=== PATIENT | male | born 1965 | race Caucasian/White ===

== ENCOUNTER → 2017-10-09 | Outpatient (CLI) | payer BC ==
--- NOTE | 2017-10-09 15:51 | PN ---
PROGRESS NOTE Ramón is coming to see me in followup. He is a 52-year-old male patient who is very well known to me. He was last seen in our office in August of 2014. The patient has obstructive sleep apnea and he was undergoing routine DOT certification back then. He has an auto CPAP unit which is set at a minimum pressure of 9 and a maximum pressure of 12. The patient was very compliant and he has demonstrated excellent use. His DOT certification was renewed back then. Since then, the patient is coming in to be re- evaluated, knowing that he has an upcoming DOT evaluation by the end of the year. Nevertheless, his current [employer] machine is unable to record any data to confirm compliance. The chip that was in the machine was taken out and sent to [facility], and again there was no data collected. His treatment, however, is successfully. He using a Dream[employer]ear nose mask. He is wearing it every night and he is waking up refreshed and alert during the day. He goes to bed around 9 to 10 p.m. and wakes up somewhere between 5 and 6 a.m. in the morning. He denies having any significant weight gain; however, based on my records the patient has gained around 25 to 30 pounds since his diagnosis of obstructive sleep apnea. His current weight is up to 351. His current [place] score is 8. He does not fall asleep while driving or operating heavy machinery. He does not snore or stop breathing while on the CPAP treatment. REVIEW OF SYSTEMS: No nocturia. No dysuria. No grinding of the teeth. No sleepwalking or sleeptalking. No anxiety or panic attacks. No palpitation or chest pain. No heartburn. No dyspnea. No restlessness in his lower extremities or symptoms of neuropathy. No focal neurological deficits. No headaches. No alteration in memory or concentration or irritability. No depression. No anxiety. No claustrophobia. No sexual dysfunction. PHYSICAL EXAMINATION: BP is 136/105, pulse 82, respiration 16, temperature 97.5, saturation 97% on room air. Weight is 351. Height is . Neck size is 18 inches. GENERAL APPEARANCE: Calm, comfortable. No acute distress. Head is atraumatic, normocephalic. Neck is short, supple. Crowding of the posterior pharynx is present. There is no goiter or neck masses. LUNGS: Clear to auscultation. HEART: Heart sounds are regular rate and rhythm. Normal S1, S2. No S3, S4. No murmurs. ABDOMEN: Soft, nontender. No organomegaly. EXTREMITIES: No edema. No cyanosis or clubbing. NEUROLOGIC: The patient is alert and oriented x3. There is no focal neurological deficit. PSYCHIATRIC: Negative for anxiety or depression. SKIN: Negative for wounds or ulceration. IMPRESSION: 1. Symptomatic obstructive sleep apnea. The patient has been compliant with his auto CPAP unit which is a [employer] unit, with a minimum pressure of 9 and maximum pressure of 10. The patient continues to receive successful treatment; nevertheless, the machine is malfunctioning in terms of being unable to record any information in regard to his compliancy. 2. Obesity. 3. Hypersomnia, improved. 4. Hypertension. PLAN: The patient is very interested in purchasing his own machine. I advised him an [employer] ResMed CPAP unit, which will be set at the same setting. Encourage weight loss. Continue using the [employer]ear face mask. Once he purchases his own machine, he can bring it up to me to download compliancy data. He continues to receive treatment and his treatment is successful for now. MMODL / IJN: [id number] /
== END | disposition home or self-care (01) ==
LOC: SLEEP 13:59
PROVIDERS: ATTEND Internal Medicine Critical Care Medicine
DX: G47.33 Obstructive sleep apnea (adult) (pediatric) (principal); E66.9 Obesity, unspecified; I10 Essential (primary) hypertension; Z99.89 Dependence on other enabling machines and devices
CPT/HCPCS: 99211

== ENCOUNTER → 2022-06-06 | Outpatient (CLI) | payer BC ==
--- NOTE | 2022-06-06 07:04 | CT ---
EXAMINATION TYPE: CT sinus wo con DATE OF EXAM: 06/06/2022 COMPARISON: NONE HISTORY: Chronic sinusitis. CT DLP: 648.7 mGycm. Automated Exposure Control for Dose Reduction was Utilized. TECHNIQUE: CT scan of the sinuses is performed without contrast, axial images are obtained, coronal r eformatted images are also reviewed. FINDINGS: Nearly completely opacified right maxillary sinus. Moderate to severe mucosal thickening in the left maxillary sinus. Mild mucosal thickening anterior aspect of the sphenoid sinuses bilateral ly. Mild to moderate inferior mucosal thickening with patchy fluid in the right frontal sinus. Minima l mucosal thickening inferior left frontal sinus. Mucosal thickening and opacification of ethmoid sin uses bilaterally greater on the right and greatest anteriorly. The surgically treated ostiomeatal com plex is patent bilaterally but more narrowed on the right due to antral mucosal thickening and opacif ication Visualized portion of mastoid air cells show no abnormal opacification. The globes are intact bilate rally. IMPRESSION: Acute on chronic paranasal pansinusitis despite prior sinus surgery as detailed above.
== END | disposition home or self-care (01) ==
LOC: RADCTMAIN 06:33
PROVIDERS: ATTEND Otolaryngology
DX: J32.4 Chronic pansinusitis (principal)
CPT/HCPCS: 70486

== ENCOUNTER 2022-07-20 07:33 | Day surgery (SDC) | payer BC ==
[~2022-07-20 07:33] MED LIST: DEXAMETHASONE SOD PHOSPHATE 4 MG/ML 1 ML VIAL IV ONE; DEXAMETHASONE SOD PHOSPHATE 4 MG/ML 1 ML VIAL IV PRN; FAMOTIDINE 20 MG/2 ML VIAL IV PRN; HYDROmorphone 0.5 MG/0.5 ML SYRINGE IVP PRN; ONDANSETRON 4 MG/2 ML VIAL IVP ONE; ONDANSETRON 4 MG/2 ML VIAL IVP PRN; ceFAZolin 3 GM in SODIUM CHLORIDE 0.9% 100 ML IVPB PRN; metroNIDAZOLE-NS PMX 500 MG in SALINE 1 100ML.BAG IVPB PRN
[2022-07-20] MEDS: OXYMETAZOLINE 0.05% NASL SPRAY 1 SPRAY BOTTLE EA NOSTRIL PRN ×2 (08:21→15:00)
[2022-07-20] MEDS: LACTATED RINGERS 1,000 ML IV SCH ×2 (08:23→14:27)
[2022-07-20] MEDS ORDERED: LIDOCAINE 1% (10MG/ML) FOR IV START INTRADERMA ONE (08:23)
[2022-07-20] MEDS ORDERED: HYDROmorphone (PF) 1 MG/ML ONE (09:22)
[2022-07-20] MEDS ORDERED: fentaNYL (PF) 50 MCG/ML 2 ML AMP ONE (09:22)
[2022-07-20] MEDS ORDERED: MIDAZOLAM 2 MG/2 ML VIAL ONE (09:22)
[2022-07-20] MEDS ORDERED: LIDOCAINE 2% INJ 20 MG/ML (2 ML VIAL) ONE (09:22)
[2022-07-20] MEDS ORDERED: PROPOFOL 10 MG/ML 20 ML VIAL IV ONE (09:22)
[2022-07-20] MEDS ORDERED: ROCURONIUM 10 MG/ML (5 ML VIAL) IV ONE (09:22)
[2022-07-20] MEDS ORDERED: BACITRACIN ZINC 500 UNIT/GM OINT 28.4 GM TUBE TOPICAL ONE (09:56)
[2022-07-20] MEDS ORDERED: LIDOCAINE 1%-EPI 1:100,000 20 ML VIAL SQ ONE (09:57)
[2022-07-20] MEDS ORDERED: EPINEPHrine 1 MG/ML (MDV) 30 ML VIAL TOPICAL ONE (09:57)
[2022-07-20] MEDS ORDERED: FLUORESCEIN STRIPS 1 MG STRIP MISCELLANE ONE (09:57)
[2022-07-20] MEDS ORDERED: BUPIVACAIN-EPI 0.25%-1:200,000 30 ML VIAL SQ ONE (09:58)
--- NOTE | 2022-07-20 10:50 | P.OP ---
Date of Procedure: 07/20/22 Preoperative Diagnosis: Chronic pansinusitis with polyposis Deviated nasal septum Hypertrophy of inferior nasal turbinates Postoperative Diagnosis: Same Procedure(s) Performed: Septoplasty Bilateral submucosal resection of the inferior nasal turbinates with outfracturing compression Bilateral functional endoscopic sinus surgery Anesthesia: GETA Surgeon: Kirk Harper Estimated Blood Loss (ml): 20 Pathology: other (Sinonasal) Condition: stable Disposition: PACU Indications for Procedure: Patient had evidence of chronic pansinusitis with nasal obstruction septal deflection inferior turbinate hypertrophy. Patient's failed medical therapy. After long discussion the patient wished to proceed forward with surgery. All risks, benefits and alternative therapies were discussed in detail. Consent was obtained and all questions were answered. Operative Findings: Evidence of chronic pansinusitis, septal deflection and inferior turbinate hypertrophy Description of Procedure: This patient was taken to the operative room and placed in the supine position. A general inhalation anesthetic was administered to the patient by the department of anesthesia with a functioning IV line in place. The patient was monitored throughout the entire case by the department of anesthesia. The eyes were taped shut for protection. The patient was placed in a slight reverse Trendelenburg position. The patient had previously utilize Afrin nasal spray preoperatively. The nose was evaluated and the septum lateral nasal wall and inferior turbinates were injected with lidocaine 1% with epinephrine 1 100,000 bilaterally. Approximately 10 minutes were allowed wait for full vasoconstrictive effects to take place. At this point a caudal incision was made over the caudal portion of the left septum down to the mucoperichondrium. A mucoperichondrial flap was elevated on the left side and dissection was carried with use of tunnels posteriorly. We then made a crossover incision through the cartilage to the contralateral side and for the mucoperichondrial flap development was performed to the extent of visualization on the contralateral side. After the cartilage was freed with use of several crosshatching incisionsof septal cartilage, the septum was straightened and placed back in the midline. The septum was sutured fixated to the ovarian groove. Excellent straightening occurred and the septum was visibly straight. Incision was closed with a 40 rapid Vicryl. We utilized a running nonlocking fashion for closure of the incision. A quilting stitch was used to reapproximate the septal flaps with use of a 40 rapid Vicryl. We then entered the nose with a 0 and 30 Tracy nona endoscope. Previous to this we did inject the lateral nasal wall and middle turbinate and uncinate process with lidocaine 1% with epinephrine 1 100,000. Approximately 10 minutes were allowed wait for full vasoconstrictive effects to take place. With use of a microdebrider and a pediatric backbiter, we took down the uncinate process bilaterally. We then opened the maxillary sinuses bilaterally. We utilized a microdebrider for this and entered the maxillary sinuses and removed diseased tissue. This was done bilaterally. After the maxillary sinuses were opened and the diseased tissue was removed we entered the ethmoid bulla and with use of a microdebrider and up-biting boss and Blakesley, we followed the fovea frontalis through the basal lamella and into the posterior ethmoid air cells and did a total ethmoidectomy. We removed the anterior ethmoid air cells with use of a microdebrider and up-biting boss. After all the anterior ethmoid air cells were removed we did the same in the posterior ethmoid. A total ethmoidectomy was completed in that fashion with removal of all the anterior and posterior ethmoid air cells and diseased tissue. Once the ethmoids cells were all taken down we then entered the sphenoid sinus medially and inferiorly underneath the inferior attachment of the superior turbinate. The sphenoid sinus was opened entered and diseased tissue was removed bilaterally. This was done with a microdebrider and Blakesley. We then entered the frontal sinuses with a giraffe and up-biting Bl akkassieley entered on the agar nasi cells. We open the frontal sinuses and removed sinus tissue that was diseased. We explored the frontal sinuses bilaterally. To summarize all sinuses were open all sinuses were explored and we remove diseased tissue from the sphenoid maxillary and frontal sinuses. Ethmoid sinuses were opened totally. Xerogel was inserted and minimal bleeding was encountered. We reinspected the skull base there is no signs of any orbital penetration or signs of any intracranial penetration. The sugical site was reinspected after the xerogel was placed and no bleeding was seen. Intranasal splints were inserted and fixated at the end of the case. We utilized Ibrahim nasal splints. There will be removed and the patient returns to the office. Attention was then paid to the inferior turbinates. The bilateral inferior turbinates were hypertrophic and obstructive. We entered the inferior turbinates with use of a microdebrider. We did not operate on the turbinate hea d. We remove bone and submucosal elements with use of a microdebrider bilaterally. The inferior turbinates underwent a submucosal resection with removal of submucosal tissue and bone. We obtained a much better and normal in size for breathing. The inferior turbinates were then outfractured and compressed with a Boyes nasal elevator. Excellent airway was obtained and was symmetric bilaterally. No bleeding was encountered.
[2022-07-20 10:58] VITALS: TEMP 98.1
[2022-07-20] MEDS ORDERED: ENALAPRILAT 1.25 MG/ML 1 ML VIAL ONE (12:41)
[2022-07-20] MEDS ORDERED: ENALAPRILAT 1.25 MG/ML 1 ML VIAL IV ONE (12:44)
[2022-07-20] MEDS ORDERED: LABETALOL SYRINGE 5 MG/ML IVP ONE (14:19)
[2022-07-20] MEDS ORDERED: amLODIPine 5 MG TAB PO STA (14:25)
[2022-07-20 15:07] VITALS: RESP 20
[2022-07-20 16:14] VITALS: BP 134/87; PULSE 78
[2022-07-20] MEDS ORDERED: ONDANSETRON ODT 4 MG TAB PO ONE (16:30)
== END 2022-07-20 16:44 | disposition home or self-care (01) ==
LOC: OR 07:33
PROVIDERS: ATTEND Otolaryngology
DX: J34.2 Deviated nasal septum (principal); J34.89 Other specified disorders of nose and nasal sinuses; J32.4 Chronic pansinusitis; J34.3 Hypertrophy of nasal turbinates; G47.33 Obstructive sleep apnea (adult) (pediatric); Z99.89 Dependence on other enabling machines and devices; Z88.2 Allergy status to sulfonamides; Z88.8 Allergy status to other drugs, medicaments and biological substances; I10 Essential (primary) hypertension; Z87.891 Personal history of nicotine dependence; Z98.890 Other specified postprocedural states; Z79.01 Long term (current) use of anticoagulants; Z79.51 Long term (current) use of inhaled steroids; Z79.1 Long term (current) use of non-steroidal anti-inflammatories (NSAID); Z79.899 Other long term (current) drug therapy; Z79.891 Long term (current) use of opiate analgesic; Z91.018 Allergy to other foods; Z91.09 Other allergy status, other than to drugs and biological substances; Z82.49 Family history of ischemic heart disease and other diseases of the circulatory system
CPT/HCPCS: 88305; 31253; 31257; 30140; 30520; C2625; J0171; J2250; J1100; J0690; J2405; J3010; J1170 ×2; J2704; J2001

== ENCOUNTER → 2022-08-08 | Outpatient (CLI) | payer BC ==
--- NOTE | 2022-08-08 09:06 | XR ---
EXAMINATION TYPE: XR ribs LT w pa chest xray DATE OF EXAM: 08/08/2022 CLINICAL HISTORY: Chest and left-sided rib pain. Recent fall injury. TECHNIQUE: Single frontal view of the chest is obtained. A frontal and oblique images of the left-wayne ed ribs. COMPARISON: None FINDINGS: There is no focal air space opacity, pleural effusion, or pneumothorax seen. The cardiac silhouette size is within normal limits. Multilevel spurring in the thoracic spine. Dedicated images of the left-sided ribs show linear lucency suspicious for acute slightly displaced f ractures involving the anterolateral left 10th rib near the cartilaginous portion. Overlying soft tis sues unremarkable. IMPRESSION: 1. Acute slightly displaced fracture involving the anterolateral left 10th rib near cartilaginous por tion or junction. 2. No acute pulmonary process.
== END | disposition home or self-care (01) ==
LOC: RADXRYALE 08:41
PROVIDERS: ATTEND Internal Medicine
DX: S22.32XA Fracture of one rib, left side, initial encounter for closed fracture (principal)

== ENCOUNTER 2022-08-12 23:23 | Emergency (ER) | payer BC ==
[2022-08-12 23:40] VITALS: TEMP 98.3
[2022-08-13 00:57] LABS: ALT 20 U/L (4-49); AST 56 U/L (17-59); African American GFR (CKD) >90 (>60 ml/min/1.73 sqM); Albumin 3.8 g/dL (3.5-5.0); Alkaline Phosphatase 38 U/L (38-126); Anion Gap 8 mmol/L; Blood Urea Nitrogen 18 mg/dL (9-20); Calcium 8.4 mg/dL (8.4-10.2); Carbon Dioxide 21 mmol/L (22-30); Chloride 109 mmol/L (98-107); Glucose 115 mg/dL (74-99); Magnesium 2.2 mg/dL (1.6-2.3); Non-African American GFR(CKD) >90 (>60 ml/min/1.73 sqM); Sodium 138 mmol/L (137-145); Total Bilirubin 1.1 mg/dL (0.2-1.3); Total Protein 6.9 g/dL (6.3-8.2)
[2022-08-13 01:18] LABS: Potassium 4.7 mmol/L (3.5-5.1)
--- NOTE | 2022-08-13 01:54 | XR ---
EXAMINATION TYPE: XR chest 2V DATE OF EXAM: 08/13/2022 COMPARISON: 08/08/2022 HISTORY: Chest pain TECHNIQUE: 2 views FINDINGS: Heart is normal. Lungs are clear of infiltrate. No heart failure. There is poor inspiration. IMPRESSION: Poor inspiration which is decreased compared to old exams. No pulmonary consolidation or heart failure.
--- NOTE | 2022-08-13 03:12 | ED ---
General Adult HPI - General Chief complaint: Upper Respiratory Infection Stated complaint: right sided chest pain post fall Time Seen by Provider: 08/12/22 23:51 Source: patient Mode of arrival: ambulatory Limitations: no limitations - History of Present Illness Initial comments: This is a 57-year-old male with a past medical history including hypertension since emergency department for right-sided chest congestion. The patient stated that he fell down 3 stairs last week and did have pain in the left side of his ribs and he did get evaluated at his primary care physician office on Sunday and was diagnosed with a rib fracture on the left side however he was not in any acute pain. The patient stated that since that office visit he had worked all week but stated that over the last several days he had increasing cough and congestion the right side of his lungs became concerned. The patient denied any recent sick contacts and denied any fevers or chills but did state he was congested. The patient was resting in bed without any acute pain, nausea, vomiting as well as any fevers and chills. - Related Data Home Medications Medication Instructions Recorded Confirmed Lisinopril-Hctz 10-12.5 mg 1 tab PO DAILY 07/17/22 07/20/22 [Zestoretic 10-12.5] Allergies Allergy/AdvReac Type Severity Reaction Status Date / Time sulfamethoxazole Allergy Rash/Hives Verified 07/20/22 08:01 [From Bactrim] trimethoprim [From Bactrim] Allergy Rash/Hives Verified 07/20/22 08:01 Review of Systems ROS Statement: Those systems with pertinent positive or pertinent negative responses have been documented in the HPI. ROS Other: All systems not noted in ROS Statement are negative. Past Medical History Past Medical History: Hypertension History of Any Multi-Drug Resistant Organisms: None Reported Past Surgical History: Hernia Repair Additional Past Surgical History / Comment(s): sinus surgery 2009&2021. Past Anesthesia/Blood Transfusion Reactions: No Reported Reaction Past Psychological History: No Psychological Hx Reported Smoking Status: Never smoker Past Alcohol Use History: None Reported Past Drug Use History: None Reported General Exam Limitations: no limitations General appearance: alert, in no apparent distress Head exam: Present: atraumatic, normocephalic, normal inspection Eye exam: Present: normal appearance, PERRL Pupils: Present: normal accommodation ENT exam: Present: normal exam, normal oropharynx, mucous membranes moist Neck exam: Present: normal inspection, full ROM Respiratory exam: Present: normal lung sounds bilaterally Cardiovascular Exam: Present: regular rate, normal rhythm, normal heart sounds GI/Abdominal exam: Present: soft, normal bowel sounds Extremities exam: Present: normal inspection, full ROM, normal capillary refill Back exam: Present: normal inspection, full ROM Neurological exam: Present: alert, oriented X3, CN II-XII intact Psychiatric exam: Present: normal affect, normal mood Skin exam: Present: warm, dry Course Vital Signs 08/12/22 08/13/22 23:37 03:22 Temperature 98.3 F Pulse Rate 94 78 Respiratory 18 15 Rate Blood Pressure 154/86 144/87 O2 Sat by Pulse 96 99 Oximetry EKG Findings - EKG Comments: EKG Findings:: An EKG was obtained and was interpreted by myself showing a rate of 79, MI interval 164, QRS duration of 98 and QTC of 396. This EKG showed a normal sinus rhythm with no ST segment elevation or depression noted. Medical Decision Making - Medical Decision Making Was pt. sent in by a medical professional or institution (, PA, LAND CLASSIFIER, urgent care, hospital, or prison...) When possible be specific @ -No Did you speak to anyone other than the patient for history (EMS, parent, family, police, friend...)? What history was obtained from this source @ -No Did you review nursing and triage notes (agree or disagree)? Why? @ -I reviewed and agree with nursing and triage notes Were old charts reviewed (outside hosp., previous admission, EMS record, old EKG, old radiological studies, urgent care reports/EKG's, prison records)? Report findings @ -No old charts were reviewed Differential Diagnosis (chest pain, altered mental status, abdominal pain women, abdominal pain men, vaginal bleeding, weakness, fever, dyspnea, syncope, headache, dizziness, GI bleed, back pain, seizure, CVA, palpatations, mental health)? @ -Pneumothorax, pneumonia, chest wall strain, URI EKG interpreted by me (3pts min.). @ -As above X-rays interpreted by me (1pt min.). @ -Chest x-ray was obtained and was interpreted by myself showing decreased respiratory effort however there was no signs of pneumonia or any acute pathology. CT interpreted by me (1pt min.). @ -None done U/S interpreted by me (1pt. min.). @ -None done What testing was considered but not performed or refused? (CT, X-rays, U/S, labs)? Why? @ -None What meds were considered but not given or refused? Why? @ -None Did you discuss the management of the patient with other professionals (professionals i.e. Dr., PA, LAND CLASSIFIER, lab, RT, psych nurse, licensed clinical social worker, forensic nurse, teacher, donor relations officer, case monitor)? Give summary @ -No Was smoking cessation discussed for >3mins.? @ -No Was critical care preformed (if so, how long)? @ -No Were there social determinants of health that impacted care today? How? (Homelessness, low income, unemployed, alcoholism, drug addiction, transportation, low edu. Level, literacy, decrease access to med. care, senior living, rehab)? @ -No Was there de-escalation of care discussed even if they declined (Discuss DNR or withdrawal of care, Hospice)? DNR status @ -No What co-morbidities impacted this encounter? (DM, HTN, Smoking, COPD, CAD, Cancer, CVA, ARF, Chemo, Hep., AIDS, mental health diagnosis, sleep apnea, morbid obesity)? @ -Hypertension Was patient admitted / discharged? Hospital course, mention meds given and route, prescriptions, significant lab abnormalities, going to OR and other pertinent info. @ -The patient was seen and evaluated emergency department. Physical exam, the patient was resting in bed without any acute distress. Vital signs were stable. Chest x-ray was negative and laboratory workup only had a CMP that was within normal limits. Swabs were positive for COVID-19. The patient had multiple attempts for a CBC repeat however was unable to obtain this and he did not want to be poked any further and I did agree with this. The patient had a reason for his congestion and COVID-19 was likely the etiology for this. The patient was advised to follow-up in the emergency department if his pain became acutely worse or had any worsening shortness of breath. The patient was agreeable to this and all discretions were answered. The patient was discharged home in stable condition. Undiagnosed new problem with uncertain prognosis? @ -No Drug Therapy requiring intensive monitoring for toxicity (Heparin, Nitro, Insulin, Cardizem)? @ -No Were any procedures done? @ -No Diagnosis/symptom? @ -COVID-19 Acute, or Chronic, or Acute on Chronic? @ -Acute Uncomplicated (without systemic symptoms) or Complicated (systemic symptoms)? @ -Uncomplicated Side effects of treatment? @ -No Exacerbation, Progression, or Severe Exacerbation? @ -No Poses a threat to life or bodily function? How? (Chest pain, [place], [place], pneumonia, PE, COPD, DKA, ARF, appy, cholecystitis, CVA, Diverticulitis, Homicidal, Suicidal, threat to staff... and all critical care pts) @ -No - Lab Data Result diagrams: 08/13/22 00:31 Lab Results 08/13/22 08/13/22 08/13/22 Range/Units 00:31 00:31 00:55 Sodium 138 (137-145) mmol/L Potassium 4.7 (3.5-5.1) mmol/L Chloride 109 H (98-107) mmol/L Carbon Dioxide 21 L (22-30) mmol/L Anion Gap 8 mmol/L BUN 18 (9-20) mg/dL Creatinine 0.81 (0.66-1.25) mg/dL Est GFR (CKD-EPI)AfAm >90 (>60 ml/min/1.73 sqM) Est GFR (CKD-EPI)NonAf >90 (>60 ml/min/1.73 sqM) Glucose 115 H (74-99) mg/dL Calcium 8.4 (8.4-10.2) mg/dL Magnesium 2.2 (1.6-2.3) mg/dL Total Bilirubin 1.1 (0.2-1.3) mg/dL AST 56 (17-59) U/L ALT 20 (4-49) U/L Alkaline Phosphatase 38 (38-126) U/L Troponin I <0.012 (0.000-0.034) ng/mL Total Protein 6.9 (6.3-8.2) g/dL Albumin 3.8 (3.5-5.0) g/dL Influenza Type A (PCR) Not Detected (Not Detectd) Influenza Type B (PCR) Not Detected (Not Detectd) RSV (PCR) Not Detected (Not Detectd) SARS-CoV-2 (PCR) Detected A (Not Detectd) Disposition Clinical Impression: COVID-19 Disposition: HOME SELF-CARE Condition: Stable Instructions (If sedation given, give patient instructions): COVID-19 (Coronavirus Disease 2019) (ED) Is patient prescribed a controlled substance at d/c from ED?: No Referrals: Georgina Donovan MD [Primary Care Provider] - 1-2 days Time of Disposition: 03:10
[2022-08-13 03:23] VITALS: BP 144/87; PULSE 78; RESP 15
== END 2022-08-13 03:29 | disposition home or self-care (01) ==
LOC: EC 23:23
DX: U07.1 COVID-19 (principal); I10 Essential (primary) hypertension; Z79.899 Other long term (current) drug therapy; Z88.2 Allergy status to sulfonamides; Z88.1 Allergy status to other antibiotic agents
CPT/HCPCS: 36415; 71046; 80053; 83735; 84484; 87636; 99285

== ENCOUNTER → 2022-08-24 | Outpatient (CLI) | payer BC ==
--- NOTE | 2022-08-25 06:58 | US ---
EXAMINATION TYPE: US chest DATE OF EXAM: 08/24/2022 COMPARISON: Chest radiograph 08/23/2022. CLINICAL HISTORY: J90 PLEURAL EFFUSION. Patient states he fell down the stairs 08/04. TECHNIQUE: Targeted ultrasound of the posterior lower right hemithorax EXAM MEASUREMENTS: Right Pleural Effusion pocket size: 1.5 cm Right side NOT marked for possible thoracentesis outside the dept. Pulmonologists are able to review the images in the patient?s EMR. IMPRESSIONS: Trace right pleural effusion.
== END | disposition home or self-care (01) ==
LOC: RADUSWWP 15:26
PROVIDERS: ATTEND Internal Medicine Critical Care Medicine
DX: J90 Pleural effusion, not elsewhere classified (principal)
CPT/HCPCS: 76604